=== PATIENT | male | born 1985 | race Hispanic/Latino ===

== ENCOUNTER 2020-10-12 16:54 | Emergency (ER) | payer SELFPAY ==
--- OUTSIDE RECORDS SUMMARY | 2020-10-12 16:56 | XMS REPORT | Continuity of Care Document ---
:1985 Author Organization [facility] t Address [address] [place] [address] [address] [place] [address] Care Team Providers Name Role Phone Unavailable Unavailable Unavailable Problems This patient has no known problems. Allergies, Adverse Reactions, Alerts This patient has no known allergies or adverse reactions. Medications This patient has no known medications. Procedures This patient has no known procedures. Results This patient has no known results.
[2020-10-12 20:10] LABS: Absolute Lymphocytes (CBC) 0.9 K/uL (0.7-4.9); Basophils % 0.6 % (0-1.3); Hematocrit 45.6 % (39.6-49.0); Lymphocytes % 19.3 % (15.3-44.8); MPV 7.5 fL (7.6-11.3); RBC Red Blood Cell Count 4.76 M/uL (4.33-5.43)
--- NOTE | 2020-10-12 21:09 | ER ---
Nurse's Notes [facility] Name: Memo Smith Age: 35 yrs Sex: Male : 1985 Arrival Date: 10/12/2020 Time: 16:57 Bed DIS4 Private MD: Diagnosis: Postive Covid 19. Upper respiratory infection Presentation: 10/12 17:12 Chief complaint: Friend and/or Co-Worker states: last night he started with fever last tw2 night and coughing. his boss called to let him know he tested POSITIVE for covid and work wanted him to get tested for COVID. Coronavirus screen: chills, congestion, cough unrelated to allergies, fever, Client presents with at least one sign or symptom that may indicate coronavirus-19. Standard/surgical mask placed on the client. Provider contacted for isolation considerations. Ebola Screen: Patient denies travel to an Ebola-affected area in the 21 days before illness onset. Initial Sepsis Screen: Does the patient meet any 2 criteria? No. Patient's initial sepsis screen is negative. Does the patient have a suspected source of infection? No. Patient's initial sepsis screen is negative. Risk Assessment: Do you want to hurt yourself or someone else? Patient reports no desire to harm self or others. Onset of symptoms was October 12, 2020. 17:12 Method Of Arrival: Ambulatory tw2 17:12 Acuity: MARCO A 4 tw2 Triage Assessment: 17:14 General: Appears in no apparent distress. slender, well groomed, Behavior is calm, tw2 cooperative, appropriate for age. Pain: Denies pain. Respiratory: Denies shortness of breath Parent/caregiver reports the patient having cough that is. Historical: - Allergies: 17:14 No Known Allergies; tw2 - Home Meds: 17:14 None [Active]; tw2 - PMHx: 17:14 None; tw2 - PSHx: 17:14 None; tw2 - Immunization history:: Client reports having NOT received the Covid vaccine. - Social history:: Smoking status: Patient reports the use of cigarette tobacco products, smokes one pack cigarettes per day. Patient uses alcohol, claims drinking about a 6 pack/day. Screenin:06 Abuse screen: Denies threats or abuse. Nutritional screening: No deficits noted. bb Tuberculosis screening: No symptoms or risk factors identified. Fall Risk None identified. Assessment: 20:06 General: Appears in no apparent distress. Behavior is calm, cooperative. Neuro: Level bb of Consciousness is awake, alert, obeys commands, Oriented to person, place, time, situation. Cardiovascular: Capillary refill < 3 seconds Patient's skin is warm and dry. Respiratory: Respiratory effort is even, unlabored, Respiratory pattern is regular. GI: No signs and/or symptoms were reported involving the gastrointestinal system. Derm: Skin is pink, warm \T\ dry. Musculoskeletal: Circulation, motion, and sensation intact. 21:24 Reassessment: Patient is alert, oriented x 3, equal unlabored respirations, skin bb warm/dry/pink. pt verbalized understanding of and agrees to plan of care discharge instructions given pt ambulated with steady gait to exit accompanied by family. Vital Signs: 17:12 BP 132 / 83; Pulse 62; Resp 17; Temp 98(TE); Pulse Ox 99% on R/A; tw2 21:24 BP 136 / 72; Pulse 68; Resp 16 S; Temp 98(TE); Pulse Ox 99% on R/A; bb ED Course: 16:57 Patient arrived in ED. mr 17:14 Triage completed. tw2 17:14 Arm band placed on. tw2 19:34 Reinaldo Mcdaniel MD is Attending Physician. pkl 19:55 Initial lab(s) drawn, by md, sent to lab. COVID swab sent to lab. Strep swab sent to bb lab. 20:06 Jaida Crooks, RN is Primary Nurse. bb 20:06 Patient has correct armband on for positive identification. bb 21:25 No provider procedures requiring assistance completed. Patient did not have IV access bb during this emergency room visit. Administered Medications: No medications were administered Outcome: 21:09 Discharge ordered by . pkl 21:25 Discharged to home ambulatory, with family. bb 21:25 Condition: stable 21:25 Discharge instructions given to patient, Instructed on discharge instructions, follow up and referral plans. Demonstrated understanding of instructions, follow-up care. 21:25 Patient left the ED. bb Signatures: Reinaldo Mcdaniel MD MD pkMariaelena Thakur mr Jaida Crooks, GILMA RN bb Nia Celis RN RN tw2
--- NOTE | 2020-10-12 21:10 | EDPHYS ---
Physician Documentation [facility] Name: Memo Smith Age: 35 yrs Sex: Male : 1985 Arrival Date: 10/12/2020 Time: 16:57 Bed DIS4 Private MD: ED Physician Reinaldo Mcdaniel HPI: 10/12 19:51 This 35 yrs old Male presents to ER via Ambulatory with complaints of Fever, pkl Cough. 19:51 The patient or guardian reports cough, described as mild, with no sputum. Onset: The pkl symptoms/episode began/occurred last night. Associated signs and symptoms: Pertinent positives: sore throat. Patient boss tested positive for Covid 19. Want patient to be tested for Covid 19. Historical: - Allergies: 17:14 No Known Allergies; tw2 - Home Meds: 17:14 None [Active]; tw2 - PMHx: 17:14 None; tw2 - PSHx: 17:14 None; tw2 - Immunization history:: Client reports having NOT received the Covid vaccine. - Social history:: Smoking status: Patient reports the use of cigarette tobacco products, smokes one pack cigarettes per day. Patient uses alcohol, claims drinking about a 6 pack/day. ROS: 19:51 Eyes: Negative for injury, pain, redness, and discharge. pkl 19:51 ENT: Positive for sore throat. 19:51 Neck: Negative for stiffness. 19:51 Cardiovascular: Negative for chest pain. 19:51 Respiratory: Positive for cough, with no reported sputum. 19:51 Abdomen/GI: Negative for abdominal pain, nausea, vomiting, and diarrhea. 19:51 Back: Negative for acute changes. 19:51 : Negative for urinary symptoms. 19:51 MS/extremity: Negative for acute changes. 19:51 Skin: Negative for rash. 19:51 Neuro: Negative for altered mental status, loss of consciousness. Exam: 19:51 Head/Face: Normocephalic, atraumatic. Eyes: Pupils equal round and reactive to light, pkl extra-ocular motions intact. Lids and lashes normal. Conjunctiva and sclera are non-icteric and not injected. Cornea within normal limits. Periorbital areas with no swelling, redness, or edema. 19:51 ENT: Posterior pharynx: erythema, that is mild. 19:51 Neck: Exam negative for nuchal rigidity. 19:51 Chest/axilla: Exam negative for acute changes. 19:51 Cardiovascular: Rate: normal, Rhythm: regular. 19:51 Respiratory: the patient does not display signs of respiratory distress, Respirations: normal, Breath sounds: are clear throughout. 19:51 Abdomen/GI: Bowel sounds: normal, Palpation: abdomen is soft and non-tender, in all quadrants. 19:51 Back: Exam negative for acute changes. 19:51 : Exam negative for acute changes. 19:51 Musculoskeletal/extremity: Exam is negative for acute changes. 19:51 Skin: Exam negative for rash. 19:51 Neuro: Orientation: is normal, Mentation: is normal, Cranial nerves: grossly normal, Motor: is normal. Vital Signs: 17:12 BP 132 / 83; Pulse 62; Resp 17; Temp 98(TE); Pulse Ox 99% on R/A; tw2 21:24 BP 136 / 72; Pulse 68; Resp 16 S; Temp 98(TE); Pulse Ox 99% on R/A; bb MDM: 19:34 Patient medically screened. pkl 20:50 Data reviewed: vital signs, nurses notes, lab test result(s). pkl 21:05 ED course: Discussed lab results with patient. Advised to quarantine for 10 days. To pkl return if any respiratory distress. patient understood instructions. 10/12 19:38 Order name: CBC with Diff; Complete Time: 20:28 pkl 10/12 19:38 Order name: Strep; Complete Time: 20:50 pkl 10/12 20:49 Order name: Throat Culture EDMS 10/12 21:00 Order name: SARS-COV-2 RT PCR; Complete Time: 21:05 EDMS Administered Medications: No medications were administered Disposition Summary: 10/12/20 21:09 Discharge Ordered Location: Home pkl Problem: new pkl Symptoms: are unchanged pkl Condition: Stable pkl Diagnosis - Postive Covid 19. Upper respiratory infection pkl Followup: pkl - With: Private Physician - When: 2 - 3 days - Reason: Re-evaluation by your physician Discharge Instructions: - Discharge Summary Sheet bb Forms: - Medication Reconciliation Form pkl - Thank You Letter pkl - Antibiotic Education pkl - Prescription Opioid Use pkl - Work release form bb Signatures: Dispatcher [employer] EDGA Reinaldo Mcdaniel MD MD pkl Nia Celis RN RN tw2 Corrections: (The following items were deleted from the chart) 20: 19:43 CORONAVIRUS+MR.LAB.BRZ ordered. EDGA EDGA : 21:05 ED course: Discussed lab results with patient. Advised to quarantine for 10 days. pkl To return if any respiratory distress. pkl
[2020-10-12 21:44] VITALS: TEMP 98; O2SAT 99
[2020-10-12 21:46] VITALS: BP 136/72
== END 2020-10-12 21:25 | disposition home or self-care (01) ==
LOC: ER 16:54
DX: U07.1 COVID-19 (principal); J06.9 Acute upper respiratory infection, unspecified; F17.210 Nicotine dependence, cigarettes, uncomplicated
CPT/HCPCS: 36415; 85025; 87070; 87081; 99283; U0003